=== PATIENT | male | born 1940 | race Asian ===

== ENCOUNTER 2019-03-07 12:29 | Inpatient (IN) | payer MEDICARE, MEDICAID ==
[~2019-03-07] VITALS: Ht 170.2 cm; Wt 59.9 kg
--- NOTE | 2019-03-07 12:33 | NUR ---
PT BIB [facility] FOR ALTERED AND POSSIBLE SEPSIS SINCE THIS MORNING, PT IS AAOX1, NOT IN RESPIRATORY DISTRESS, NOTED ELEVATED TEMP 104.8 MD AWARE, HOOKED TO MONITOR, KEPT RESTED AND COMFORTABLE, WILL CONTINUE TO MONITOR.
--- NOTE | 2019-03-07 12:35 | NUR ---
IV LINE ESTABLISHED, BLOOD DRAWNED AND SENT TO LAB.
--- NOTE | 2019-03-07 12:40 | NUR ---
SEEN AND EXAMINED BY .
--- NOTE | 2019-03-07 12:51 | NUR ---
URINE SPECIMEN COLLECTED AND SENT TO LAB.
[2019-03-07] MEDS ORDERED: ACETAMINOPHEN 650 MG/SUPP.RECT RC ONE ×2 (12:52→13:00)
[2019-03-07 12:56] LABS: BASOPHILS % (AUTO) 0.1 % (0.0-2.0); HEMATOCRIT 40 % (39-51); HEMOGLOBIN 13.3 g/dL (13.5-17.5); LYMPHOCYTES # (AUTO) 0.2 /CMM (0.8-4.8); LYMPHOCYTES % (AUTO) 1.6 % (20.0-44.0); MEAN CORPUSCULAR HGB CONC 33 g/dl (31.0-36.0); MEAN CORPUSCULAR VOLUME 95 fL (80-96); MONOCYTES # (AUTO) 0.2 /CMM (0.1-1.30); MONOCYTES % (AUTO) 1.9 % (2.0-12.0); NEUTROPHILS # (AUTO) 12.8 /CMM (1.8-8.9); NEUTROPHILS % (AUTO) 96.4 % (43.0-81.0); PLATELET COUNT (AUTO) 167 /CMM (150-450); RED BLOOD CELL COUNT(AUTO) 4.17 MIL/uL (4.5-6.0); WHITE BLOOD COUNT (AUTO) 13.3 K/uL (4.3-11.0)
[2019-03-07] MEDS ORDERED: PIPERACILLIN /TAZOBACTAM 3.375 G in IV D5W 50 ML IV ONE (13:00)
[2019-03-07] MEDS ORDERED: IV NS 0.9% 1,000 ML BAG IV ONE ×2 (13:00)
[2019-03-07] MEDS ORDERED: MEROPENEM 1 G in IV NS 0.9% 100 ML IV ONE (13:00)
[2019-03-07 13:03] LABS: CALCIUM, SERUM 8.4 mg/dL (8.5-10.1); CARBON DIOXIDE 25 mmol/L (21-32); CHLORIDE 106 mmol/L (98-107); CREATININE 1.3 mg/dL (0.6-1.3); GLUCOSE 134 mg/dL (74-106); SODIUM SERUM 140 mmol/L (136-145); UREA NITROGEN, BLOOD 11 mg/dL (7-18)
--- NOTE | 2019-03-07 13:06 | NUR ---
SOA ARCHITECT AT BEDSIDE FOR XRAY.
[2019-03-07 13:18] LABS: ALANINE AMINOTRANSFERASE 43 U/L (12-78); ALBUMIN 2.5 g/dL (3.4-5.0); ALKALINE PHOSPHATASE 91 U/L (46-116); APPEARANCE,URINE Clear (CLEAR); ASPARTATE AMINOTRANSFERASE 32 U/L (15-37); BILIRUBIN,DIRECT 0.4 mg/dL (0.0-0.2); BILIRUBIN,TOTAL 1.5 mg/dL (0.2-1.0); BILIRUBIN,URINE Negative (NEGATIVE); BLOOD, URINE Large Ery/uL (NEGATIVE); KETONES,URINE Trace (NEGATIVE); LEUKOCYTE ESTERASE ,URINE Large (NEGATIVE); NITRITE, URINE Negative (NEGATIVE); PROTEIN,URINE Trace mg/dl (NEGATIVE); UGLUCOSE Negative (NEGATIVE); UROBILINOGEN,URINE 0.2 EU/dL (0.2)
[2019-03-07 13:19] LABS: COLOR,URINE AMBER (YELLOW)
[2019-03-07 13:20] LABS: BACTERIA,URINE Few /HPF (None Seen); SQUAMOUS EPITHELIAL CELL,UR Few /HPF (None Seen)
[2019-03-07] MEDS ORDERED: ASPI-1152 PO (13:22)
[2019-03-07] MEDS ORDERED: SENN-168 PO (13:22)
[2019-03-07] MEDS ORDERED: NA P133E RC (13:22)
[2019-03-07] MEDS ORDERED: MAGN400O6 PO (13:22)
[2019-03-07] MEDS ORDERED: ACET-2605 PO (13:22)
[2019-03-07] MEDS ORDERED: ACET-868 PO (13:22)
[2019-03-07] MEDS ORDERED: BISA10SU11 RC (13:22)
[2019-03-07] MEDS ORDERED: PIPE3.377 IV (13:22)
--- NOTE | 2019-03-07 14:40 | NUR ---
REPORT GIVEN TO LISA BOOTHE FOR OLGA.
[2019-03-07 15:00] VITALS: BP 119/72
--- NOTE | 2019-03-07 15:00 | NUR ---
RN INITIAL NOTES: PT IN BED, AWAKE, A/O X1 ABLE TO MAKE NEES KNOWN, ON RA RESPIRATIONS EVEN AND UNLABORED. ADMITTED FOR SEPSIS. IV ACCESS TO LEFT HAND 22G AND RIGHT AC 18G PATENT AND INTACT NO REDNESS OR INFILTRATION NOTED. SAFETY PRECAUTIONS IN PLACE, CALL LIGHT IN REACH, WILL CONTINUE TO MONITOR PT, BODY CHECK DONE PICTURES IN CHART, DR. GARY NOTIFIED OF PT'S ARRIVAL AND MED RECONCILE DONE WILL AWAIT NEW ADMITTING ORDERS
[2019-03-07 16:00] VITALS: BP 119/72
[2019-03-07] MEDS ORDERED: HYDROCODONE/APAP 5/325MG 1 EACH TABLET PO PRN (17:30)
[2019-03-07] MEDS ORDERED: ZOLPIDEM TARTRATE 5 MG TABLET PO PRN (17:30)
[2019-03-07] MEDS ORDERED: Z GUARD REMEDY 2 OZ OINT TP PRN (17:30)
[2019-03-07] MEDS: IPRATROPIUM NEB FS 0.5 MG/2.5 ML AMPUL.NEB NEB SCH ×2 (17:30→19:56)
[2019-03-07] MEDS: ALBUTEROL FS 2.5 MG/3 ML VIAL.NEB NEB SCH ×2 (17:30→19:56)
[2019-03-07] MEDS ORDERED: MAG HYDROX/AL HYDROX/SIMETH 30 ML UDC PO PRN (17:30)
[2019-03-07] MEDS ORDERED: MAGNESIUM HYDROXIDE 30 ML UDC PO PRN (17:30)
[2019-03-07] MEDS ORDERED: ACETAMINOPHEN 325 MG TABLET PO PRN (17:30)
[2019-03-07] MEDS ORDERED: ONDANSETRON HCL/PF 4 MG/2 ML VIAL IVP PRN (17:30)
[2019-03-07] MEDS ORDERED: FEE PK DOSING 1 MIN EA MC ONE (17:38)
[2019-03-07] MEDS ORDERED: ZOSYN IVPB 3.375 G in IV D5W 50ml IV ONE (18:00)
[2019-03-07] MEDS: ENOXAPARIN SODIUM 40 MG/0.4 ML DISP.SYRIN SQ SCH (18:00)
[2019-03-07] MEDS ORDERED: VANCOMYCIN 1 GM in IV D5W 250 ML IV ONE (18:00)
--- NOTE | 2019-03-07 18:30 | NUR ---
RN NOTES PT WITH CODE STATUS DNR MD AWARE, WILL PLACE ORDER, CALLED PHARMACY REGARDING VANCO AND ZOSYN PER MICHELLE, MEDICATIONS ARE BEING DELIVERED WILL CONTINUE TO CHECK AND INFORM HEEL SEAT SANDER
--- NOTE | 2019-03-07 18:45 | NUR ---
RN NOTES MD NOTIFIED PT HAVING BLOOD IN URINE AND DIAPER, HELD LOVENOX UNTIL FURTHER ORDERS
[2019-03-07] MEDS: IV NS 0.9% 1,000 ML IV PRN (18:53)
--- NOTE | 2019-03-07 19:30 | NUR ---
FABRICATION SPECIALIST OPENING NOTES: RECEIVED PT ON ROOM AIR AND TOLERATING WELL. NO SOB NOTED. NO S/S OF DISTRESS. PT IS A/OX1 TO SELF. PT AROUSABLE TO NAME AND TOUCH. PT ASLEEP AT THIS TIME. PT ON TELE MONITOR AND READING SHOWS SR 98. PT HAS IV AND IS BEING INFUSED WITH ZOSYN AT THIS TIME ON R AC #18G IV. PT ALSO HAS IV ON L HAND #22G. BED ALARM ACTIVATED. BED KEPT IN LOW, LOCKED POSITION, AND SIDE RAILS X 2UP. WILL CONTINUE TO MONITOR PT.
--- NOTE | 2019-03-07 19:35 | NUR ---
RN NOTES: PT IN BED, ASLEEP AROUSABLE, A/O X1 ABLE TO MAKE NEEDS KNOWN, ON RA RESPIRATIONS EVEN AND UNLABORED. ADMITTED FOR SEPSIS. IV ACCESS TO LEFT HAND 22G AND RIGHT AC 18G PATENT AND INTACT NO REDNESS OR INFILTRATION NOTED. SAFETY PRECAUTIONS IN PLACE, ENDORSED TO NEXT SHIFT FOR CONTINUITY OF CARE
--- NOTE | 2019-03-07 19:58 | NUR ---
ANKIT GONZALEZ NOTES: VANCO ADMIN LATE VANCO WAS DELIVERED LATE. Addendum: 03/07/19 at 1959 by NATALIO MURDOCK RN PT APPEARS TO BE LETHARGIC.
[2019-03-07 20:00] VITALS: BP 118/78
[2019-03-07] MEDS: PIPERACILLIN /TAZOBACTAM 3.375 G in IV D5W 100 ML IV SCH (23:49)
[2019-03-08] VITALS (7 sets, daily range): BP systolic 108–127; BP diastolic 67–80
[2019-03-08] MEDS: IPRATROPIUM NEB FS 0.5 MG/2.5 ML AMPUL.NEB NEB SCH ×7 (00:23→23:30)
[2019-03-08] MEDS: VANCOMYCIN 500 MG in IV D5W 100 ML IV SCH ×2 (05:02→18:54)
[2019-03-08 06:31] LABS: BASOPHILS % (AUTO) 0.3 % (0.0-2.0); EOSINOPHILS % (AUTO) 0.4 % (0.0-6.0); HEMATOCRIT 33 % (39-51); HEMOGLOBIN 11.5 g/dL (13.5-17.5); LYMPHOCYTES # (AUTO) 0.6 /CMM (0.8-4.8); LYMPHOCYTES % (AUTO) 5.5 % (20.0-44.0); MEAN CORPUSCULAR HGB CONC 34 g/dl (31.0-36.0); MEAN CORPUSCULAR VOLUME 96 fL (80-96); MONOCYTES # (AUTO) 0.5 /CMM (0.1-1.30); MONOCYTES % (AUTO) 4.5 % (2.0-12.0); NEUTROPHILS # (AUTO) 9.1 /CMM (1.8-8.9); NEUTROPHILS % (AUTO) 89.3 % (43.0-81.0); PLATELET COUNT (AUTO) 127 /CMM (150-450); RED BLOOD CELL COUNT(AUTO) 3.47 MIL/uL (4.5-6.0); WHITE BLOOD COUNT (AUTO) 10.2 K/uL (4.3-11.0)
--- NOTE | 2019-03-08 06:39 | NUR ---
TARGETING ACQUISITION OFFICER CLOSING NOTES: ALL NEEDS WERE ATTENDED AND ANTICIPATED FOR. PT KEPT CLEAN, DRY, AND COMFORTABLE. PT ON ROOM AIR AND TOLERATING WELL. NO SOB NOTED. NO S/S OF DISTRESS. PT EASILY AROUSABLE TO NAME AND TOUCH. PT TURNED AND REPOSITIONED Q 2HRS. PT ON TELE MONITOR AND READING SHOWS A FLUTTER 72. PT HAS IV ON L HAND #22G AND IS PATENT AND INTACT. CURRENTLY H/L. PT ALSO HAS R AC #18G AND IS BEING INFUSED WITH IV NS AT 75ML/HR. BED ALARM ACTIVATED. BED KEPT IN LOW, LOCKED POSITION, AND SIDE RAILS X 2UP. WILL ENDORSE TO AM NURSE FOR OLGA.
[2019-03-08 07:05] LABS: CALCIUM, SERUM 7.9 mg/dL (8.5-10.1); CREATININE 0.9 mg/dL (0.6-1.3); MAGNESIUM 1.5 mg/dL (1.8-2.4); PHOSPHORUS 2.5 mg/dL (2.5-4.9); POTASSIUM 3.6 mmol/L (3.5-5.1)
[2019-03-08] MEDS: ALBUTEROL FS 2.5 MG/3 ML VIAL.NEB NEB SCH ×4 (07:35→20:02)
--- NOTE | 2019-03-08 08:00 | NUR ---
RN NOTES RECEIVED PATIENT IN THE BED AWAKE WATCHING TV, PATIENT A/O X3, NO ACUTE RESPIRATORY DISTRESS, V/S STABLE, ADMINISTERED SCHEDULED MEDICATION, PATIENT TOTAL ASSIST, ASSIST TURN AND REPOSTION Q 2 HR, INCONTINENT USING DIAPER. INFUSING NS AT RIGHT AC AREA 75 ML/HR INTACT. ASSIST TURN AND REPOSTION Q 2HR,, PATIENT INCONTINENT APPLIED Z-GUARD. PATIENT REFUSED PAIN, SAFETY PRECAUTION MAINTAINED ALL THE TIME.
--- NOTE | 2019-03-08 08:31 | NUR ---
RN NOTES D/C TELE TO MED/SURE BY PAINTER AND BODY MECHANIC APPRENTICE Dr. PHILIPPE.
[2019-03-08] MEDS: PIPERACILLIN /TAZOBACTAM 3.375 G in IV D5W 100 ML IV SCH ×2 (08:41→16:04)
[2019-03-08] MEDS: Magnesium 1GM/D5W 100ML PREMIX 100 ML IV SCH ×3 (10:33→13:25)
--- NOTE | 2019-03-08 12:30 | NUR ---
RN NOTES PATIENT STABLE IN THE BED EATING LUNCH. FAMILY NEXT TO THE BED.
--- NOTE | 2019-03-08 14:00 | NUR ---
RN NOTES SEEN PATIENT BY PT. ASSIST PATIENT TO SIT EDGE OF THE BED, THEN ASSIST BACK TO THE BED, PATIENT WAS REFUSED PAIN. SAFETY PRECAUTION MAINTAINED ALL THE TIME.
--- NOTE | 2019-03-08 18:30 | NUR ---
RN NOTES PATIENT STABLE, NO ACUTE RESPIRATORY DISTRESS, V/S STABLE, INFUSING VANCOMYCIN 100 ML/HR ON LEFT WRIST AREA, AND ZOSYN 25 ML/HR ON RIGHT AC AREA. ASSIST TURN AND REPOSTION Q 2 HR. CALL LIGHT WITHIN TO REACH, ENDORSED ONCOMING NURSE FOLLOW PLAN OF CARE.
--- NOTE | 2019-03-08 20:00 | NUR ---
ms rn notes received pts in bed awake a/o x3 , no sob no distress noted , breathing even and unlabored . Pts on nc at 2liters well tolerated .v/s stable afebrile . on ivf of ns at 75cc/hr infusing well with iv heplock of right ac G#22 and left wrist 24 intact ad patent .all due meds given as ordered , all needs attended too . call light within reach . kept pts clean dry and comfortable , will coninue to monitor pts.
[2019-03-08] MEDS: ENOXAPARIN SODIUM 40 MG/0.4 ML DISP.SYRIN SQ SCH (21:00)
[2019-03-09] MEDS: IV NS 0.9% 1,000 ML IV PRN (00:40)
[2019-03-09] MEDS: PIPERACILLIN /TAZOBACTAM 3.375 G in IV D5W 100 ML IV SCH ×4 (00:45→23:42)
[2019-03-09] MEDS: IPRATROPIUM NEB FS 0.5 MG/2.5 ML AMPUL.NEB NEB SCH ×6 (02:54→22:42)
[2019-03-09 06:19] LABS: BASOPHILS % (AUTO) 0.4 % (0.0-2.0); EOSINOPHILS % (AUTO) 1.6 % (0.0-6.0); HEMATOCRIT 33 % (39-51); HEMOGLOBIN 11.1 g/dL (13.5-17.5); LYMPHOCYTES # (AUTO) 0.9 /CMM (0.8-4.8); LYMPHOCYTES % (AUTO) 14.8 % (20.0-44.0); MEAN CORPUSCULAR HGB CONC 34 g/dl (31.0-36.0); MEAN CORPUSCULAR VOLUME 96 fL (80-96); MONOCYTES # (AUTO) 0.5 /CMM (0.1-1.30); MONOCYTES % (AUTO) 8.7 % (2.0-12.0); NEUTROPHILS # (AUTO) 4.3 /CMM (1.8-8.9); NEUTROPHILS % (AUTO) 74.5 % (43.0-81.0); PLATELET COUNT (AUTO) 131 /CMM (150-450); RED BLOOD CELL COUNT(AUTO) 3.43 MIL/uL (4.5-6.0); WHITE BLOOD COUNT (AUTO) 5.8 K/uL (4.3-11.0)
[2019-03-09] MEDS: VANCOMYCIN 500 MG in IV D5W 100 ML IV SCH (06:44)
[2019-03-09 06:50] LABS: CARBON DIOXIDE 24 mmol/L (21-32); CHLORIDE 108 mmol/L (98-107); CREATININE 0.8 mg/dL (0.6-1.3); GLUCOSE 105 mg/dL (74-106); MAGNESIUM 1.8 mg/dL (1.8-2.4); PHOSPHORUS 2.4 mg/dL (2.5-4.9); POTASSIUM 3.2 mmol/L (3.5-5.1); SODIUM SERUM 141 mmol/L (136-145); UREA NITROGEN, BLOOD 8 mg/dL (7-18)
--- NOTE | 2019-03-09 07:03 | NUR ---
ms rn notes pts in bed awake and responsive , no complain of pain all needs attended too call light within reach , vancotrough at 5am is 11 vanco 500mg given as ordered pts remains on ivf of ns at 75cc /hr infusing well ,will endorse to rn day shift for continuityof care.
[2019-03-09] MEDS: ALBUTEROL FS 2.5 MG/3 ML VIAL.NEB NEB SCH ×4 (07:35→19:30)
[2019-03-09 08:00] VITALS: BP 131/76
--- NOTE | 2019-03-09 08:00 | NUR ---
RN NOTES RECEIVED PATIENT IN THE BED A/O X3, PATIENT HAS NO ACUTE RESPIRATORY DISTRESS, V/S STALE REFUSED PAIN, ASSIST TURN AND REPOSTION Q 2 HR. ADMINISTERED SCHEDULED MEDICATION. INFUSING NS AT RIGHT AC ARE NS 75 ML/HR INTACT. PATIENT INCONTINENT APPLIED Z-GUARD. PATIENT TOLERATED BREAKFAST 50% , SAFETY PRECAUTION MAINTAINED ALL THE TIME.
[2019-03-09 08:03] VITALS: BP 131/76
[2019-03-09] MEDS ORDERED: Magnesium 1GM/D5W 100ML PREMIX 100 ML IV SCH (11:02)
[2019-03-09] MEDS: POTASSIUM CHLORIDE 20 MEQ TAB.PRT.SR PO SCH ×2 (11:08→12:30)
[2019-03-09] MEDS ORDERED: K PHOS NEUTRAL 250 MG TABLET PO ONE (11:30)
--- NOTE | 2019-03-09 13:00 | NUR ---
RN NOTES PATIENT RESTING IN THE BED. ADMINISTERED SCHEDULED MEDICATION, CALL LIGHT WITHIN TO REACH. ASIST TURN AND REPOSTION Q 2 HR, CONTINUED MONITORING.
[2019-03-09] MEDS ORDERED: POTASSIUM CHLORIDE 20 MEQ TAB.PRT.SR PO ONE (15:00)
[2019-03-09 16:20] VITALS: BP 123/72
--- NOTE | 2019-03-09 18:30 | NUR ---
RN NOTES PATIENT STABLE, NO ACUTE RESPIRATORY DISTRESS, INFUSING ZOSYN 25 ML/HR ON RIGHT AC AREA INTACT, PATIENT ALSO GETTING BREATHING TX WITH RT, NO ACUTE RESPIRATORY DISTRESS. ASSIST TURN AND REPOSITION Q 2 HR, REFUSED PAIN. ENDORSED ONCOMING NURSE FOLLOW PLAN OF CARE.
--- NOTE | 2019-03-09 19:20 | NUR ---
RN PM NOTES BEDSIDE REPORT RECIEVED FROM LAYO GONZALEZ. PATIENT SEEN IN BED SEMI FOWLERS POSITION STABLE ALERT AND ORIENTED X2, NO ACUTE RESPIRATORY DISTRESS, RIGHT AC IV HAS NO S/S OF INFILTRATION. NO ACUTE RESPIRATORY DISTRESS NOTED BREATHS ARE EVEN AND UNLABORED. WILL CONT TO MONITOR. SAFETY MEASURES IN PLACE BED DOWN LOCKED SRX2 CALL LIGHT WITHIN REACH VERBALIZED UNDERSTANDING TO CALL FOR ASSISTANCE IF NEEDED.
[2019-03-09 20:00] VITALS: BP 126/73
[2019-03-09] MEDS: ENOXAPARIN SODIUM 40 MG/0.4 ML DISP.SYRIN SQ SCH (21:36)
[2019-03-10] MEDS: IPRATROPIUM NEB FS 0.5 MG/2.5 ML AMPUL.NEB NEB SCH ×6 (03:17→23:30)
[2019-03-10] MEDS: IV NS 0.9% 1,000 ML IV PRN (05:19)
--- NOTE | 2019-03-10 06:30 | NUR ---
RN PM NOTES CLOSING PATIENT SEEN IN BED SEMI FOWLERS POSITION STABLE ALERT AND ORIENTED X2, NO ACUTE RESPIRATORY DISTRESS, RIGHT AC IV HAS NO S/S OF INFILTRATION. NO ACUTE RESPIRATORY DISTRESS NOTED BREATHS ARE EVEN AND UNLABORED. SAFETY MEASURES IN PLACE BED DOWN LOCKED SRX2 CALL LIGHT WITHIN REACH VERBALIZED UNDERSTANDING TO CALL FOR ASSISTANCE IF NEEDED.
[2019-03-10 06:58] LABS: CALCIUM, SERUM 7.8 mg/dL (8.5-10.1); CARBON DIOXIDE 25 mmol/L (21-32); CHLORIDE 109 mmol/L (98-107); CREATININE 0.8 mg/dL (0.6-1.3); GLUCOSE 96 mg/dL (74-106); PHOSPHORUS 2.6 mg/dL (2.5-4.9); POTASSIUM 3.7 mmol/L (3.5-5.1); SODIUM SERUM 142 mmol/L (136-145); UREA NITROGEN, BLOOD 6 mg/dL (7-18)
[2019-03-10] MEDS: ALBUTEROL FS 2.5 MG/3 ML VIAL.NEB NEB SCH ×4 (07:35→20:00)
[2019-03-10 08:00] VITALS: BP 137/81
[2019-03-10] MEDS: PIPERACILLIN /TAZOBACTAM 3.375 G in IV D5W 100 ML IV SCH ×2 (08:00→16:39)
--- NOTE | 2019-03-10 08:00 | NUR ---
RN NOTES PATIENT RESTING IN THE BED, AWAKE A/O X3, PATIENT HAS NO ACUTE RESPIRATORY DISTRESS, RT WITH THE PATIENT AT THIS TIME FOR BREATHING TX, ADMINISTERED SCHEDULED MEDICATION INFUSING ZOSYN 25 ML/HR ON RIGHT AC AREA INTACT.[id number] REFUSING PAIN, ASSIST TURN AND REPOSTION Q 2 HR. PATIENT INCONTINENT APPLIED Z-GUARD. CALL LIGHT WITHIN TO REACH. CONTINUED MONITORING.
--- NOTE | 2019-03-10 09:00 | NUR ---
RN NOTES PATIENT WITH THE OT AT THIS TIME. PER OT PATIENT OUT OF BED STAND UP AND BACK TO THE BED, V/S WNL. REPOSITION ON LEFT SIDE USING PILLOWS. CALL LIGHT WITHIN TO REACH, CONTINUED MONITORING.
--- NOTE | 2019-03-10 12:00 | NUR ---
RN NOTES FAMILY NEXT TO THE BED, PATIENT EATING LUNCH, TOLERATING FOOT 50% BY SELF. CONTINUED MONITORING.
--- NOTE | 2019-03-10 13:27 | NUR ---
RN NOTES PATIENT RESTING IN THE BED, AWAKE A/O X3, PATIENT HAS NO ACUTE RESPIRATORY DISTRESS, RT WITH THE PATIENT AT THIS TIME FOR BREATHING TX, ADMINISTERED SCHEDULED MEDICATION INFUSING ZOSYN 25 ML/HR ON RIGHT AC AREA INTACT.[id number] REFUSING PAIN, ASSIST TURN AND REPOSTION Q 2 HR. PATIENT INCONTINENT APPLIED Z-GUARD. CALL LIGHT WITHIN TO REACH. CONTINUED MONITORING.
[2019-03-10 16:00] VITALS: BP 124/82
--- NOTE | 2019-03-10 18:30 | NUR ---
rn notes patient stable, refused pain, v/s wnl. patient eating dinner tolerating 50%, assist turn and reposition q 2 hr. call light within to reach. safety precaution maintained all the time. endorsed oncoming nurse follow plan of care.
--- NOTE | 2019-03-10 19:15 | NUR ---
rn pm opening note bedside report recieved from pedrito hernández. patient seen lying in bed. poc reviewed with patient questions concerns addressed. patient has hx of dementia will reinforce prn. patient denies pain, call light within reach. safety precaution in place bed alarm active. will cont to monitor.
[2019-03-10 20:00] VITALS: BP 136/86
[2019-03-10] MEDS: ENOXAPARIN SODIUM 40 MG/0.4 ML DISP.SYRIN SQ SCH (22:09)
[2019-03-11] MEDS: PIPERACILLIN /TAZOBACTAM 3.375 G in IV D5W 100 ML IV SCH ×2 (00:24→08:18)
[2019-03-11] MEDS: IPRATROPIUM NEB FS 0.5 MG/2.5 ML AMPUL.NEB NEB SCH ×4 (03:30→15:14)
--- NOTE | 2019-03-11 06:30 | NUR ---
RN PM CLOSING NOTES patient seen lying in bed with eyes closed in no apparent distress. call light within reach if needed. safety precaution in place bed alarm active.
[2019-03-11] MEDS: ALBUTEROL FS 2.5 MG/3 ML VIAL.NEB NEB SCH ×3 (07:17→15:14)
[2019-03-11 07:22] LABS: BASOPHILS % (AUTO) 0.6 % (0.0-2.0); EOSINOPHILS % (AUTO) 1.8 % (0.0-6.0); HEMATOCRIT 34 % (39-51); HEMOGLOBIN 11.4 g/dL (13.5-17.5); LYMPHOCYTES # (AUTO) 0.9 /CMM (0.8-4.8); LYMPHOCYTES % (AUTO) 18.5 % (20.0-44.0); MEAN CORPUSCULAR HGB CONC 34 g/dl (31.0-36.0); MEAN CORPUSCULAR VOLUME 96 fL (80-96); MONOCYTES # (AUTO) 0.3 /CMM (0.1-1.30); MONOCYTES % (AUTO) 5.2 % (2.0-12.0); NEUTROPHILS # (AUTO) 3.6 /CMM (1.8-8.9); NEUTROPHILS % (AUTO) 73.9 % (43.0-81.0); PLATELET COUNT (AUTO) 144 /CMM (150-450); RED BLOOD CELL COUNT(AUTO) 3.53 MIL/uL (4.5-6.0); WHITE BLOOD COUNT (AUTO) 4.9 K/uL (4.3-11.0)
[2019-03-11 07:34] LABS: CALCIUM, SERUM 8.1 mg/dL (8.5-10.1); CREATININE 0.8 mg/dL (0.6-1.3); MAGNESIUM 1.6 mg/dL (1.8-2.4); PHOSPHORUS 2.5 mg/dL (2.5-4.9); POTASSIUM 3.6 mmol/L (3.5-5.1)
[2019-03-11 07:57] VITALS: BP 100/64
[2019-03-11 08:00] VITALS: BP 100/64
--- NOTE | 2019-03-11 08:00 | NUR ---
RN NOTES RECEIVED PATIENT IN THE BED EATING, PATIENT A/O X3, NO ACUTE RESPIRATORY DISTRESS, V/S STABLE. ADMINISTERED SCHEDULED MEDICATION INFUSING ZOSYN 25 ML/HR ON LEFT AC AREA INTACT.[id number] REFUSING PAIN, ASSIST TURN AND REPOSTION Q 2 HR. PATIENT STATE '" I WOULD LIKE TO WALK USING WALKER". ENCOURAGED PATIENT DO NOT GET OUT OF BED SELF FOR FALL PREVENTION. PATIENT VERBALIZED UNDERSTANDING. PATIENT INCONTINENT APPLIED Z-GUARD. CALL LIGHT WITHIN TO REACH. CONTINUED MONITORING.
[2019-03-11] MEDS ORDERED: LEVO750T21 PO (10:10)
[2019-03-11] MEDS: Magnesium 1GM/D5W 100ML PREMIX 100 ML IV SCH ×2 (11:04→12:32)
--- NOTE | 2019-03-11 11:21 | NUR ---
RN NOTES GET CALL FROM [facility] FROM SPUTUM CULTURE WAS COLLECTED ALL OVER CONTAMINATED UNABLE TO RUN TEST, NEED RECOLLECTION AGAIN. CHARGE NURSE, AND HOSPITALIST AWARE OF.
--- NOTE | 2019-03-11 12:30 | NUR ---
RN NOTES PATIENT WILL D/C BACK TO SNF AFTER MAGNESIUM REPLACEMENT PER HOSPITALIST ORDER.
[2019-03-11 16:00] VITALS: BP 155/84
--- NOTE | 2019-03-11 17:19 | NUR ---
B OPERATOR NOTES PATIENT DISCHARGE AT THIS TIME GOING BACK TO [facility]. PATIENT A/O X3, STABLE, V/S WNL, PATIENT REFUSED PAIN, MED COMPLAINT. MED RECONCILIATION AND DISCHARGE ORDER REVIEWED AND EXPLAINED TO. REPORT GIVEN SNF LISA ROGERS. RN VERBALIZED UNDERSTANDING. PATIENT REFUSED SPUTUM CULTURE TO BE RETAKEN AGAIN. BELONGING WITH THE PATIENT. FAMILY AWARE OF DISCHARGE PLANING. PATIENT SIGN PAPERWORK. PATIENT WILL FOLLOW SNF JOINERS SUPERVISOR. PATIENT RE ETCHER BY AMBULANCE.
== END 2019-03-11 17:10 | DRG 871 ==
LOC: ER 12:31 → MED 14:47 → TELE 15:58 → MED 03-08 08:29
PROVIDERS: ADMIT Internal Medicine; ATTEND Internal Medicine
DX: A41.9 Sepsis, unspecified organism (principal); J18.1 Lobar pneumonia, unspecified organism; N17.0 Acute kidney failure with tubular necrosis; I69.351 Hemiplegia and hemiparesis following cerebral infarction affecting right dominant side; E44.1 Mild protein-calorie malnutrition; N39.0 Urinary tract infection, site not specified; Z66 Do not resuscitate; I10 Essential (primary) hypertension; I48.91 Unspecified atrial fibrillation; F03.90 Unspecified dementia, unspecified severity, without behavioral disturbance, psychotic disturbance, mood disturbance, and anxiety; E87.6 Hypokalemia; E83.42 Hypomagnesemia; E78.5 Hyperlipidemia, unspecified; I25.10 Atherosclerotic heart disease of native coronary artery without angina pectoris; D63.8 Anemia in other chronic diseases classified elsewhere; Z79.82 Long term (current) use of aspirin; Z79.899 Other long term (current) drug therapy; I70.0 Atherosclerosis of aorta; K21.9 Gastro-esophageal reflux disease without esophagitis; Z95.1 Presence of aortocoronary bypass graft; Y95 Nosocomial condition; B96.5 Pseudomonas (aeruginosa) (mallei) (pseudomallei) as the cause of diseases classified elsewhere
CPT/HCPCS: 36415; 71045-TC; 80048-TC; 80061-TC; 80076-TC; 80202-TC; 81000-TC; 83605-TC; 83735-TC; 84100-TC; 84484-TC; 85025-TC; 85730-TC; 87040-TC; 87070-TC; 87081-TC; 87086-TC; 87186-TC; 93307-TC; 94799-TC; 97110-TC; 97112-TC; 97116-TC; 97530-TC; 97535-TC; A4216; G0378; J1650; J2185; J2543; J3370; J3475; J7030; J7060